=== PATIENT | female | born 1970 | race Caucasian/White ===

== ENCOUNTER → 2021-01-24 | Outpatient (CLI) | payer OTHER ==
--- NOTE | 2021-01-24 12:55 | ECHOS ---
STRESS ECHOCARDIOGRAM INDICATIONS: Abnormal EKG. MEDICATIONS: BASELINE HEART RATE: 73 BASELINE BLOOD PRESSURE: 148/105 MAXIMUM HEART RATE: 146 MAXIMUM BLOOD PRESSURE: 180/89 85% MPHR: 145 100% MPHR: 170 METS: 7.0 MAXIMUM STAGE REACHED: II TOTAL EXERCISE TIME: 5 minutes 9 seconds CLINICAL INFORMATION: Baseline rhythm is a sinus mechanism, rate of 73, normal axis and intervals, poor R progression, minor nonspecific ST-T wave changes. Baseline blood pressure 148/105 mmHg. Patient exercised on Casey protocol for 5 minutes 9 seconds reaching peak rate 146 beats per minute which is equal to 85% maximum predicted heart rate. Peak blood pressure 180/89 mmHg. Test was terminated secondary to fatigue. There was no chest pain. Electrocardiograph monitoring revealed frequent PVCs. There was no evidence of diagnostic ischemic ST deviation. Baseline echocardiogram revealed normal wall motion. At peak exercise, there was normal wall motion augmentation with no hypokinesis or dyskinesis. CONCLUSION: 1. Average exercise tolerance with normal electrocardiograph response to exercise with frequent single PVCs and rare couplets. 2. Normal stress echocardiogram with no evidence of stress-induced ischemia. MMODL / IJN: [id number] /
== END | disposition home or self-care (01) ==
LOC: RADNMMAIN 09:39
PROVIDERS: ATTEND Family Medicine
DX: R94.31 Abnormal electrocardiogram [ECG] [EKG] (principal); R00.2 Palpitations
CPT/HCPCS: 93351; Q9950

== ENCOUNTER 2022-07-30 06:23 | Emergency (ER) | payer OTHER ==
[2022-07-30 08:09] LABS: Basophils % (A) 1 %; Eosinophils # (A) 0.3 k/uL (0-0.7); Eosinophils % (A) 5 %; HCT 43.1 % (34.0-46.0); HGB 14.8 gm/dL (11.4-16.0); Lymphocytes # (A) 1.7 k/uL (1.0-4.8); Lymphocytes % (A) 31 %; MCH 29.4 pg (25.0-35.0); MCHC 34.3 g/dL (31.0-37.0); MCV 85.8 fL (80.0-100.0); Monocytes # (A) 0.3 k/uL (0-1.0); Monocytes % (A) 6 %; Neutrophils # (A) 3.1 k/uL (1.3-7.7); Neutrophils % (A) 57 %; Platelet Count 228 k/uL (150-450); RBC 5.02 m/uL (3.80-5.40); WBC 5.4 k/uL (3.8-10.6)
[2022-07-30 08:23] LABS: Partial Thromboplastin Time 24.9 sec (22.0-30.0); Prothrombin Time 10.5 sec (9.0-12.0)
--- NOTE | 2022-07-30 08:27 | CT ---
EXAMINATION TYPE: CT brain wo con DATE OF EXAM: 07/30/2022 COMPARISON: None HISTORY: 52-year-old female headache, dizzy, blood pressure TECHNIQUE: Examination was done in axial plane without intravenous contrast. Coronal and sagittal r econstructions performed. CT DLP: 1076.4 mGycm Automated exposure control for dose reduction was used. FINDINGS: There is no evidence of acute intracranial hemorrhage, acute ischemic changes, mass, mass-effect, or extra-axial fluid collection. There is no effacement of cerebral sulci or basal subarachnoid cister ns. There is no hydrocephalus. There is no midline shift. Perdomo-white matter distinction is preserv ed. Paranasal sinuses show mild mucosal thickening ethmoid air cells and maxillary sinuses. There appears to have been prior FESS. Mastoid air cells are well pneumatized. Remains of the deviation. Orbits an d globes are intact. IMPRESSION: No acute intracranial abnormality seen. Prior FESS with mild chronic ethmoid sinus disease.
--- NOTE | 2022-07-30 08:29 | XR ---
EXAMINATION TYPE: XR chest 2V DATE OF EXAM: 07/30/2022 COMPARISON: None HISTORY: 52-year-old female high blood pressure, chest pain TECHNIQUE: PA and lateral views FINDINGS: The cardiomediastinal silhouette, aorta, and pulmonary vasculature are within normal limits. Lungs an d pleural spaces are clear. IMPRESSION: No acute cardiopulmonary process.
--- NOTE | 2022-07-30 08:32 | ED ---
Arrhythmia/Palpitations HPI - General Chief Complaint: Arrhythmia/Palpitations Stated Complaint: High BP Time Seen by Provider: 07/30/22 07:00 Source: patient, RN notes reviewed, old records reviewed Mode of arrival: ambulatory Limitations: no limitations - History of Present Illness Initial Comments: This is a 52-year-old female presents emergency Department complaining of palpitations. Patient is not initially was her anxiety however she took her b lood pressure was elevated even after she took her blood pressure medication. Patient states she had a headache and that headache started yesterday so that is not typical of anxiety. She decided come the emergency department. Patient denies any chest pain. Patient denies difficulty breathing shortness of breath per patient denies any recent fever chills or cough per patient denies any abdominal pain patient denies any nausea vomiting diarrhea. Patient denies any numbness or weakness. Patient states she has some blurred vision earlier but it's improved now. Patient states systolic blood pressure was over 200 on multiple readings at home. Patient states she is anxious she does not want any anxiety medications - Related Data Previous Rx's Medication Instructions Recorded Ondansetron Odt [Zofran ODT] 4 mg PO Q8HR PRN #15 tab 10/07/15 Allergies Allergy/AdvReac Type Severity Reaction Status Date / Time aspirin Allergy Dyspnea Verified 07/30/22 06:51 moxifloxacin HCl Allergy Rapid Verified 07/30/22 06:51 [From Avelox] Heart Rate sulfamethoxazole Allergy Rash/Hives Verified 07/30/22 06:51 [From Bactrim] trimethoprim [From Bactrim] Allergy Rash/Hives Verified 07/30/22 06:51 Review of Systems ROS Statement: Those systems with pertinent positive or pertinent negative responses have been documented in the HPI. ROS Other: All systems not noted in ROS Statement are negative. Past Medical History Past Medical History: Asthma, Hypertension Additional Past Medical History / Comment(s): migraines gall bladder issues History of Any Multi-Drug Resistant Organisms: None Reported Past Surgical History: Back Surgery Past Psychological History: No Psychological Hx Reported Smoking Status: Current every day smoker Past Alcohol Use History: None Reported Past Drug Use History: None Reported General Exam - General Exam Comments Initial Comments: GENERAL: Patient is well-developed and well-nourished. Patient is nontoxic and well- hydrated and is in mild distress. ENT: Neck is soft and supple. No significant lymphadenopathy is noted. Oropharynx is clear. Moist mucous membranes. Neck has full range of motion without eliciting any pain. EYES: The sclera were anicteric and conjunctiva were pink and moist. Extraocular mo vements were intact and pupils were equal round and reactive to light. Eyelids were unremarkable. PULMONARY: Unlabored respirations. Good breath sounds bilaterally. No audible rales rhonchi or wheezing was noted. CARDIOVASCULAR: There is a regular rate and rhythm without any murmurs gallops or rubs. ABDOMEN: Soft and nontender with normal bowel sounds. SKIN: Skin is clear with no lesions or rashes and otherwise unremarkable. NEUROLOGIC: Patient is alert and oriented x3. Cranial nerves II through XII are grossly intact. Motor and sensory are also intact. Normal speech, volume and content. Symmetrical smile. MUSCULOSKELETAL: Normal extremities with adequate strength and full range of motion. No lower extremity swelling or edema. No calf tenderness. LYMPHATICS: No significant lymphadenopathy is noted PSYCHIATRIC: Mildly anxious Limitations: no limitations Course Vital Signs 07/30/22 07/30/22 07/30/22 06:47 06:59 09:00 Temperature 98 F 98 F Pulse Rate 81 71 58 L Respiratory 16 16 18 Rate Blood Pressure 175/126 172/112 129/85 O2 Sat by Pulse 98 98 98 Oximetry Medical Decision Making - Medical Decision Making EKG was interpreted by me. Shows normal sinus rhythm at 74 bpm MI interval 142 QRS is 97 QT interval 360 QTC is 395 per patient's EKG shows no ST segment elevation or depression. I interpreted the computed tomography scan of the brain. It showed no intracranial hemorrhage or midline shift. I interpreted the chest x-ray. It showed no acute abnormality. I will back into the room and reevaluated the patient after she had hydralazine. Her blood pressure was considerably improved. Her headache was almost gone. Patient had no complaints this time and had no further palpitations wanted discharged home. - Lab Data Result diagrams: 07/30/22 07:42 07/30/22 07:42 Lab Results 07/30/22 07/30/22 07/30/22 Range/Units 07:42 07:42 07:42 WBC 5.4 (3.8-10.6) k/uL RBC 5.02 (3.80-5.40) m/uL Hgb 14.8 (11.4-16.0) gm/dL Hct 43.1 (34.0-46.0) % MCV 85.8 (80.0-100.0) fL MCH 29.4 (25.0-35.0) pg MCHC 34.3 (31.0-37.0) g/dL RDW 12.0 (11.5-15.5) % Plt Count 228 (150-450) k/uL MPV 8.0 Neutrophils % 57 % Lymphocytes % 31 % Monocytes % 6 % Eosinophils % 5 % Basophils % 1 % Neutrophils # 3.1 (1.3-7.7) k/uL Lymphocytes # 1.7 (1.0-4.8) k/uL Monocytes # 0.3 (0-1.0) k/uL Eosinophils # 0.3 (0-0.7) k/uL Basophils # 0.0 (0-0.2) k/uL PT 10.5 (9.0-12.0) sec INR 1.0 (<1.2) APTT 24.9 (22.0-30.0) sec Sodium 140 (137-145) mmol/L Potassium 4.0 (3.5-5.1) mmol/L Chloride 106 (98-107) mmol/L Carbon Dioxide 26 (22-30) mmol/L Anion Gap 8 mmol/L BUN 14 (7-17) mg/dL Creatinine 0.58 (0.52-1.04) mg/dL Est GFR (CKD-EPI)AfAm >90 (>60 ml/min/1.73 sqM) Est GFR (CKD-EPI)NonAf >90 (>60 ml/min/1.73 sqM) Glucose 98 (74-99) mg/dL Calcium 8.9 (8.4-10.2) mg/dL Magnesium 2.0 (1.6-2.3) mg/dL Total Bilirubin 0.6 (0.2-1.3) mg/dL AST 22 (14-36) U/L ALT 21 (4-34) U/L Alkaline Phosphatase 75 (38-126) U/L Troponin I (0.000-0.034) ng/mL Total Protein 6.7 (6.3-8.2) g/dL Albumin 4.1 (3.5-5.0) g/dL 07/30/22 Range/Units 07:42 WBC (3.8-10.6) k/uL RBC (3.80-5.40) m/uL Hgb (11.4-16.0) gm/dL Hct (34.0-46.0) % MCV (80.0-100.0) fL MCH (25.0-35.0) pg MCHC (31.0-37.0) g/dL RDW (11.5-15.5) % Plt Count (150-450) k/uL MPV Neutrophils % % Lymphocytes % % Monocytes % % Eosinophils % % Basophils % % Neutrophils # (1.3-7.7) k/uL Lymphocytes # (1.0-4.8) k/uL Monocytes # (0-1.0) k/uL Eosinophils # (0-0.7) k/uL Basophils # (0-0.2) k/uL PT (9.0-12.0) sec INR (<1.2) APTT (22.0-30.0) sec Sodium (137-145) mmol/L Potassium (3.5-5.1) mmol/L Chloride (98-107) mmol/L Carbon Dioxide (22-30) mmol/L Anion Gap mmol/L BUN (7-17) mg/dL Creatinine (0.52-1.04) mg/dL Est GFR (CKD-EPI)AfAm (>60 ml/min/1.73 sqM) Est GFR (CKD-EPI)NonAf (>60 ml/min/1.73 sqM) Glucose (74-99) mg/dL Calcium (8.4-10.2) mg/dL Magnesium (1.6-2.3) mg/dL Total Bilirubin (0.2-1.3) mg/dL AST (14-36) U/L ALT (4-34) U/L Alkaline Phosphatase (38-126) U/L Troponin I <0.012 (0.000-0.034) ng/mL Total Protein (6.3-8.2) g/dL Albumin (3.5-5.0) g/dL Disposition Clinical Impression: Hypertensive urgency, Cephalgia, Palpitations Disposition: HOME SELF-CARE Condition: Good Instructions (If sedation given, give patient instructions): Heart Palpitations (ED), Hypertension (ED) Additional Instructions: Patient is to follow-up with her primary medical care doctor to adjust her blood pressure medications and she is to document her blood pressures until she sees him. Patient should also follow-up as soon as possible for possible event monitor for her palpitations. Is patient prescribed a controlled substance at d/c from ED?: No Referrals: Corine Rucker DO [Primary Care Provider] - 1-2 days Time of Disposition: 09:28
[2022-07-30 08:33] LABS: ALT 21 U/L (4-34); AST 22 U/L (14-36); African American GFR (CKD) >90 (>60 ml/min/1.73 sqM); Albumin 4.1 g/dL (3.5-5.0); Alkaline Phosphatase 75 U/L (38-126); Anion Gap 8 mmol/L; Blood Urea Nitrogen 14 mg/dL (7-17); Calcium 8.9 mg/dL (8.4-10.2); Carbon Dioxide 26 mmol/L (22-30); Chloride 106 mmol/L (98-107); Glucose 98 mg/dL (74-99); Non-African American GFR(CKD) >90 (>60 ml/min/1.73 sqM); Sodium 140 mmol/L (137-145); Total Bilirubin 0.6 mg/dL (0.2-1.3); Total Protein 6.7 g/dL (6.3-8.2)
[2022-07-30 09:11] VITALS: RESP 18
[2022-07-30 09:46] VITALS: BP 143/90; PULSE 61; TEMP 98.1
== END 2022-07-30 09:46 | disposition home or self-care (01) ==
LOC: EC 06:23
DX: I16.0 Hypertensive urgency (principal); R51.9 Headache, unspecified; R00.2 Palpitations; I10 Essential (primary) hypertension; J45.909 Unspecified asthma, uncomplicated; F17.200 Nicotine dependence, unspecified, uncomplicated; Z88.1 Allergy status to other antibiotic agents; Z88.2 Allergy status to sulfonamides
CPT/HCPCS: 36415; 70450; 71046; 80053; 83735; 84484; 85025; 85610; 85730; 93005; 99285

== ENCOUNTER → 2024-10-12 | Outpatient (CLI) | payer BC ==
--- NOTE | 2024-10-12 11:26 | MM ---
Reason for Exam: Screening (asymptomatic). Baseline mammogram. Patient History: Menarche at age 11. First Full-Term at age 25. Postmenopausal. Risk Values: Lima 5 year model risk: 1.4%. NCI Lifetime model risk: 10.1%. Prior Study Comparison: Patient's first Mammogram. No prior studies available for comparison. Tissue Density: The breasts are almost entirely fatty. Findings: Analyzed By CAD. There is no suspicious group of microcalcifications or suspicious mass in either breast. Overall Assessment: Negative, BI-RAD 1 Management: Screening Mammogram of both breasts in 1 year. . Patient should continue monthly self-breast exams. A clinical breast exam by your physician is recommended on an annual basis. This exam should not preclude additional follow-up of suspicious palpable abnormalities. Note on Lima scores and lifetime risk: 1. A Lima score greater than 3% is considered moderate risk. If this is the case, consider specialist referral to assess eligibility for a risk reducing agent. 2. If overall lifetime risk for the development of breast cancer is 20% or higher, the patient may qualify for future screening with alternating mammogram and breast MRI. [facility], , 10/12/2024 11:24 AM. Electronically signed and approved by: Lionel Peterson M.D.
== END | disposition home or self-care (01) ==
LOC: RADMAMWWP 06:49
PROVIDERS: ATTEND Family Medicine
DX: Z12.31 Encounter for screening mammogram for malignant neoplasm of breast (principal); Z78.0 Asymptomatic menopausal state; R92.313 Mammographic fatty tissue density, bilateral breasts
CPT/HCPCS: 77067